=== PATIENT | male | born 1955 | race Caucasian/White ===

== ENCOUNTER 2024-04-04 00:45 | Inpatient (IN) | payer MEDICARE, OTHER ==
[~2024-04-04] VITALS: Ht 175.3 cm; Wt 90.7 kg
[~2024-04-04 00:45] MED LIST: ESCI20TA PO; FAMO-90 PO
[2024-04-04 01:00] VITALS: BP 151/66; PULSE 68; RESP 22; TEMP 97.7; O2SAT 99
[2024-04-04 01:35] LABS: BASOPHILS # (AUTO) 0.4 K/uL (0.00-0.22); BASOPHILS % (AUTO) 3.7 % (0.0-2.0); EOSINOPHILS # (AUTO) 0.2 K/uL (0-0.4); EOSINOPHILS % (AUTO) 1.7 % (0.0-4.0); HEMOGLOBIN 15.5 g/dL (12.0-18.0); LYMPHOCYTES # (AUTO) 1.3 K/uL (2.0-11.5); MEAN CORPUSCULAR HEMOGLOBIN 32 pg (27-31); MEAN CORPUSCULAR HGB CONC 35 g/dL (33-37); MEAN CORPUSCULAR VOLUME 92.6 fL (80-94); MONOCYTES # (AUTO) 0.3 K/uL (0.8-1.0); NEUTROPHILS # (AUTO) 7.3 K/uL (1.8-7.7); NEUTROPHILS % (AUTO) 77.6 % (42.2-75.2); PLATELET COUNT (AUTO) 225 K/uL (140-450); RED BLOOD CELL COUNT(AUTO) 4.87 MIL/uL (4.20-6.10); WHITE BLOOD COUNT (AUTO) 9.5 K/uL (4.8-10.8)
[2024-04-04 01:43] LABS: APPEARANCE,URINE CLEAR (CLEAR); BILIRUBIN,URINE NEGATIVE (NEGATIVE); BLOOD, URINE TRACE-I (NEGATIVE); COLOR,URINE YELLOW (YELLOW); LEUKOCYTE ESTERASE ,URINE NEGATIVE (NEGATIVE); NITRITE, URINE NEGATIVE (NEGATIVE); PROTEIN,URINE NEGATIVE (NEGATIVE); UGLUCOSE NEGATIVE (NEGATIVE); UROBILINOGEN,URINE 0.2 EU/dL (0.2 - 1)
[2024-04-04 01:49] LABS: ALBUMIN 4.3 g/dL (3.4-5.0); CALCIUM 9.9 mg/dL (8.5-10.1); TOTAL BILIRUBIN 0.7 mg/dL (0.0-1.0); TOTAL PROTEIN, SERUM 7.5 g/dL (6.4-8.2)
[2024-04-04 01:50] LABS: RBC,URINE 0-5 /HPF (0-5)
[2024-04-04 01:51] LABS: BACTERIA,URINE 10-30 (MOD) /HPF (None Seen); MUCUS,URINE 1+ /LPF (None Seen); SQUAMOUS EPITHELIAL CELL,UR 0-3 (FEW) /LPF (0-3 (FEW)); WBC,URINE 0-5 /HPF (0-5)
[2024-04-04] MEDS ORDERED: MORPHINE SULFATE 4 MG/ML SYR ONE (02:16)
[2024-04-04] MEDS: MORPHINE SULFATE 4 MG/ML SYR IVP ONE ×2 (02:24→05:00)
[2024-04-04] MEDS: ACETAMINOPHEN 100 ML IV ONE (03:34)
[2024-04-04] MEDS: NACL 0.9% 1,000 ML IV ONE ×3 (03:35→08:01)
[2024-04-04] MEDS: METOCLOPRAMIDE 10 MG/2 ML INJ VIAL IVP ONE (08:01)
[2024-04-04] MEDS: KETOROLAC 30 MG/ML VIAL IVP ONE (08:07)
[2024-04-04] MEDS ORDERED: cefTRIAXone 1,000 MG VIAL ONE (10:02)
[2024-04-04] MEDS: metroNIDAZOLE 500 MG/NS PREMIX 100 ML IV ONE (10:17)
[2024-04-04] MEDS ORDERED: ONDANSETRON 4 MG/2 ML VIAL IVP PRN (11:55)
[2024-04-04] MEDS ORDERED: MAG SULF 2000 MG/WATER PREMIX 50 ML IV PRN (11:55)
[2024-04-04] MEDS ORDERED: ZOLPIDEM 5 MG TAB PO PRN (11:55)
[2024-04-04] MEDS ORDERED: LORazepam 1 MG TAB PO PRN (11:55)
[2024-04-04] MEDS ORDERED: ATOR10TA51 PO (12:28)
[2024-04-04] MEDS ORDERED: TAMS0.4C97 PO (12:28)
[2024-04-04] MEDS ORDERED: FINA5TAB5 PO (12:28)
[2024-04-04] MEDS ORDERED: ALPR0.5T20 PO (12:28)
[2024-04-04 12:48] LABS: LACTIC ACID 1.9 mmol/L (0.4-2.0)
[2024-04-04] MEDS ORDERED: PIPERACILLIN/TAZOBACTAM 2.25 GM in DEXTROSE 5% 50 ML IV SCH (13:00)
[2024-04-04] MEDS: NACL 0.9% 1,000 ML IV SCH (13:05)
[2024-04-04] MEDS: PIPERACILLIN/TAZOBACTAM 3.375 GM in DEXTROSE 5% 50 ML IV SCH (18:17)
[2024-04-04] MEDS: KCL 20 MEQ IN 100 mL PREMIX 200 ML IV PRN (18:24)
[2024-04-04 20:00] VITALS: BP 128/59; PULSE 62; PULSE 66; RESP 18; TEMP 98.6; O2SAT 98
[2024-04-04] MEDS: ACETAMINOPHEN 325 MG TAB PO PRN (20:47)
[2024-04-05] VITALS: BP 110/53; PULSE 63; PULSE 66; RESP 20; TEMP 98.2; O2SAT 97
[2024-04-05 04:00] VITALS: BP 116/54; PULSE 59; PULSE 63; RESP 18; TEMP 98.1; O2SAT 97
[2024-04-05] MEDS ORDERED: KETOROLAC 30 MG/ML VIAL IVP ONE (06:00)
[2024-04-05] MEDS: HYDROmorphone 1 MG/ML AMP IVP ONE (06:24)
[2024-04-05 07:04] LABS: BASOPHILS % (AUTO) 0.1 % (0.0-2.0); HEMATOCRIT 41.4 % (36-52); LYMPHOCYTES # (AUTO) 0.8 K/uL (2.0-11.5); LYMPHOCYTES % (AUTO) 4.2 % (20.5-51.1); MEAN CORPUSCULAR HEMOGLOBIN 32 pg (27-31); MEAN CORPUSCULAR HGB CONC 34 g/dL (33-37); MEAN CORPUSCULAR VOLUME 93.7 fL (80-94); MONOCYTES # (AUTO) 1.1 K/uL (0.8-1.0); MONOCYTES % (AUTO) 5.7 % (1.7-9.3); NEUTROPHILS # (AUTO) 17.4 K/uL (1.8-7.7); PLATELET COUNT (AUTO) 168 K/uL (140-450); RED BLOOD CELL COUNT(AUTO) 4.42 MIL/uL (4.20-6.10); RED CELL DISTRIBUTION WIDTH 13.1 % (11.6-13.7); WHITE BLOOD COUNT (AUTO) 19.3 K/uL (4.8-10.8)
[2024-04-05 07:19] LABS: INR 1.16 (0.8-1.2); PROTHROMBIN TIME 12.1 secs (10.8-13.4)
[2024-04-05 08:00] VITALS: BP 101/52; PULSE 66; PULSE 70; RESP 18; RESP 20; TEMP 98.7; O2SAT 96; O2SAT 98
[2024-04-05] MEDS ORDERED: NACL 0.9% 1,000 ML IV SCH (08:40)
[2024-04-05] MEDS: FINASTERIDE 5 MG TAB PO SCH (08:52)
[2024-04-05] MEDS: TAMSULOSIN 0.4 MG CAP PO SCH (08:53)
[2024-04-05 10:06] LABS: ANION GAP 10.5 (8-16); CALCIUM 8.3 mg/dL (8.5-10.1); CREATININE 0.9 mg/dL (0.6-1.3); MAGNESIUM 1.8 mg/dL (1.8-2.4); PHOSPHORUS 2.4 mg/dL (2.5-4.9); POTASSIUM 3.5 mmol/L (3.5-5.1); TOTAL BILIRUBIN 1.4 mg/dL (0.0-1.0)
[2024-04-05 12:00] VITALS: BP 106/64; PULSE 70; PULSE 74; RESP 18; TEMP 98.7; O2SAT 98
[2024-04-05 16:00] VITALS: BP 113/55; PULSE 64; PULSE 74; RESP 18; TEMP 99; O2SAT 98
[2024-04-05] MEDS: ALPRAZolam 0.5 MG TAB PO SCH (17:02)
[2024-04-05 20:00] VITALS: BP 115/54; PULSE 72; PULSE 77; RESP 18; TEMP 98; O2SAT 95
[2024-04-05] MEDS: HYDROcodone/APAP 5/325 MG 1 TAB TAB PO PRN (22:50)
[2024-04-06] VITALS: BP 99/50; PULSE 75; PULSE 81; RESP 17; TEMP 98.4; O2SAT 93
[2024-04-06 04:00] VITALS: BP 110/58; PULSE 70; PULSE 79; RESP 18; TEMP 98; O2SAT 97
[2024-04-06 06:50] LABS: BASOPHILS % (AUTO) 0.1 % (0.0-2.0); HEMOGLOBIN 13.6 g/dL (12.0-18.0); LYMPHOCYTES # (AUTO) 0.8 K/uL (2.0-11.5); LYMPHOCYTES % (AUTO) 4.6 % (20.5-51.1); MEAN CORPUSCULAR HEMOGLOBIN 32 pg (27-31); MEAN CORPUSCULAR HGB CONC 34 g/dL (33-37); MEAN CORPUSCULAR VOLUME 93.7 fL (80-94); MONOCYTES # (AUTO) 0.9 K/uL (0.8-1.0); MONOCYTES % (AUTO) 5.3 % (1.7-9.3); NEUTROPHILS # (AUTO) 15.1 K/uL (1.8-7.7); PLATELET COUNT (AUTO) 142 K/uL (140-450); RED BLOOD CELL COUNT(AUTO) 4.27 MIL/uL (4.20-6.10); RED CELL DISTRIBUTION WIDTH 13.2 % (11.6-13.7); WHITE BLOOD COUNT (AUTO) 16.7 K/uL (4.8-10.8)
[2024-04-06 07:01] LABS: INR 1.16 (0.8-1.2); PROTHROMBIN TIME 12.1 secs (10.8-13.4)
[2024-04-06 07:16] LABS: ALBUMIN 2.6 g/dL (3.4-5.0); ANION GAP 8.5 (8-16); CALCIUM 8.2 mg/dL (8.5-10.1); CARBON DIOXIDE 28.7 mmol/L (21-32); CREATININE 0.8 mg/dL (0.6-1.3); MAGNESIUM 1.7 mg/dL (1.8-2.4); PHOSPHORUS 2.3 mg/dL (2.5-4.9); POTASSIUM 3.2 mmol/L (3.5-5.1); TOTAL BILIRUBIN 1.4 mg/dL (0.0-1.0); TOTAL PROTEIN, SERUM 5.7 g/dL (6.4-8.2)
[2024-04-06 08:00] VITALS: BP 129/68; PULSE 76; PULSE 78; PULSE 83; RESP 18; TEMP 98; O2SAT 94
[2024-04-06] MEDS: POTASSIUM CHLORIDE 10 MEQ TABER PO SCH (08:00)
[2024-04-06] MEDS: MAG SULF 2000 MG/WATER PREMIX 50 ML IV SCH (09:40)
[2024-04-06] MEDS: MORPHINE SULFATE 2 MG/ML SYR IVP PRN (10:21)
[2024-04-06 12:00] VITALS: BP 129/68; PULSE 79; PULSE 82; RESP 18; TEMP 99.3; O2SAT 91
[2024-04-06] MEDS: MIDAZOLAM 2 MG/2 ML VIAL ONE (13:05)
[2024-04-06] MEDS: fentaNYL citrate 0.05 MG/ML VIAL ONE (13:06)
[2024-04-06] MEDS: SUGAMMADEX SODIUM 200 MG/2 ML VIAL IV ONE (13:06)
[2024-04-06] MEDS: SUCCINYLCHOLINE CHLORIDE 200 MG/10 ML VIAL IVP ONE (13:07)
[2024-04-06] MEDS: DEXAMETHASONE 4 MG/ML VIAL ONE (13:07)
[2024-04-06] MEDS: ROCURONIUM 50 MG/5 ML VIAL IV ONE (13:07)
[2024-04-06] MEDS: ONDANSETRON 4 MG/2 ML VIAL ONE (13:07)
[2024-04-06] MEDS: PROPOFOL 200 MG/20 ML VIAL IV ONE (13:07)
[2024-04-06] MEDS: METOCLOPRAMIDE 10 MG/2 ML INJ VIAL ONE (13:07)
[2024-04-06] MEDS ORDERED: ONDANSETRON 4 MG/2 ML VIAL IVP PRN (13:15)
[2024-04-06] MEDS: LACTATED RINGERS 1,000 ML IV SCH (13:15)
[2024-04-06] MEDS ORDERED: ACETAMINOPHEN 100 ML IV SCH (13:15)
[2024-04-06] MEDS ORDERED: SEVOFLURANE 250 ML BTL INH ONE (13:31)
[2024-04-06] MEDS: BUPIVACAINE-MPF 0.25% 30 ML VIAL INJ ONE (14:29)
[2024-04-06] MEDS: HYDROmorphone 1 MG/ML AMP IVP PRN (15:40)
[2024-04-06 16:00] VITALS: BP 100/62; PULSE 62; PULSE 72; RESP 18; TEMP 98.7; O2SAT 91
[2024-04-06] MEDS: HYDROmorphone PFS 2 MG/ML SYR ONE (16:03)
[2024-04-06] MEDS: POTASSIUM CHLORIDE 40 MEQ, LIDOCAINE 1% 25 MG in NACL 0.9% 250 ML IV SCH (18:41)
[2024-04-06 20:00] VITALS: BP 111/68; PULSE 77; PULSE 78; RESP 18; TEMP 98.7; O2SAT 93; O2SAT 94
[2024-04-07] VITALS: BP 120/70; PULSE 73; PULSE 76; RESP 18; TEMP 97.4; O2SAT 94
[2024-04-07 04:00] VITALS: BP 125/68; PULSE 65; PULSE 67; RESP 18; TEMP 97.3; O2SAT 94
[2024-04-07 06:54] LABS: BASOPHILS % (AUTO) 0.2 % (0.0-2.0); HEMATOCRIT 39.1 % (36-52); HEMOGLOBIN 13.3 g/dL (12.0-18.0); LYMPHOCYTES # (AUTO) 0.3 K/uL (2.0-11.5); MEAN CORPUSCULAR HEMOGLOBIN 32 pg (27-31); MEAN CORPUSCULAR HGB CONC 34 g/dL (33-37); MEAN CORPUSCULAR VOLUME 93.1 fL (80-94); MONOCYTES # (AUTO) 0.6 K/uL (0.8-1.0); MONOCYTES % (AUTO) 4.4 % (1.7-9.3); NEUTROPHILS % (AUTO) 93.4 % (42.2-75.2); PLATELET COUNT (AUTO) 154 K/uL (140-450); WHITE BLOOD COUNT (AUTO) 13.9 K/uL (4.8-10.8)
[2024-04-07 07:11] LABS: INR 1.11 (0.8-1.2); PROTHROMBIN TIME 11.5 secs (10.8-13.4)
[2024-04-07 07:16] LABS: ALBUMIN 2.3 g/dL (3.4-5.0); ANION GAP 6.4 (8-16); CARBON DIOXIDE 29.2 mmol/L (21-32); CREATININE 0.7 mg/dL (0.6-1.3); MAGNESIUM 2.1 mg/dL (1.8-2.4); PHOSPHORUS 1.8 mg/dL (2.5-4.9); POTASSIUM 3.6 mmol/L (3.5-5.1); TOTAL BILIRUBIN 0.8 mg/dL (0.0-1.0); TOTAL PROTEIN, SERUM 5.7 g/dL (6.4-8.2)
[2024-04-07 08:00] VITALS: BP 125/70; PULSE 67; RESP 18; TEMP 96.9; O2SAT 96
[2024-04-07 12:00] VITALS: BP 121/70; PULSE 70; RESP 18; TEMP 97.9; O2SAT 96
[2024-04-07 16:00] VITALS: BP 123/72; PULSE 70; RESP 18; TEMP 98; O2SAT 97
[2024-04-07 20:00] VITALS: BP 129/64; PULSE 65; PULSE 68; RESP 18; TEMP 97.8; O2SAT 95
[2024-04-08] VITALS (9 sets, daily range): BP systolic 120–127; BP diastolic 64–68; PULSE 52–70; RESP 18; TEMP 97.4–98; O2SAT 94–98
[2024-04-08 06:33] LABS: BASOPHILS % (AUTO) 0.1 % (0.0-2.0); EOSINOPHILS % (AUTO) 0.1 % (0.0-4.0); HEMATOCRIT 37.1 % (36-52); HEMOGLOBIN 12.8 g/dL (12.0-18.0); LYMPHOCYTES # (AUTO) 0.7 K/uL (2.0-11.5); LYMPHOCYTES % (AUTO) 7.3 % (20.5-51.1); MEAN CORPUSCULAR HEMOGLOBIN 32 pg (27-31); MEAN CORPUSCULAR HGB CONC 34 g/dL (33-37); MEAN CORPUSCULAR VOLUME 92.4 fL (80-94); MONOCYTES # (AUTO) 0.5 K/uL (0.8-1.0); MONOCYTES % (AUTO) 5.9 % (1.7-9.3); NEUTROPHILS % (AUTO) 86.6 % (42.2-75.2); PLATELET COUNT (AUTO) 179 K/uL (140-450); RED BLOOD CELL COUNT(AUTO) 4.01 MIL/uL (4.20-6.10); RED CELL DISTRIBUTION WIDTH 13.1 % (11.6-13.7); WHITE BLOOD COUNT (AUTO) 9.3 K/uL (4.8-10.8)
[2024-04-08 06:35] LABS: INR 1.06 (0.8-1.2); PROTHROMBIN TIME 11.1 secs (10.8-13.4)
[2024-04-08 06:53] LABS: ALBUMIN 2.2 g/dL (3.4-5.0); ANION GAP 7.4 (8-16); CALCIUM 7.9 mg/dL (8.5-10.1); CARBON DIOXIDE 29.6 mmol/L (21-32); CREATININE 0.7 mg/dL (0.6-1.3); MAGNESIUM 2.1 mg/dL (1.8-2.4); PHOSPHORUS 1.6 mg/dL (2.5-4.9); TOTAL BILIRUBIN 0.8 mg/dL (0.0-1.0); TOTAL PROTEIN, SERUM 5.6 g/dL (6.4-8.2)
[2024-04-09] VITALS: BP 111/60; PULSE 65; RESP 18; TEMP 98.3; O2SAT 97
[2024-04-09 01:54] VITALS: O2SAT 98
[2024-04-09 07:22] LABS: BASOPHILS % (AUTO) 0.3 % (0.0-2.0); EOSINOPHILS # (AUTO) 0.1 K/uL (0-0.4); EOSINOPHILS % (AUTO) 1.5 % (0.0-4.0); HEMOGLOBIN 13.6 g/dL (12.0-18.0); LYMPHOCYTES # (AUTO) 0.9 K/uL (2.0-11.5); LYMPHOCYTES % (AUTO) 13.4 % (20.5-51.1); MEAN CORPUSCULAR HEMOGLOBIN 32 pg (27-31); MEAN CORPUSCULAR HGB CONC 34 g/dL (33-37); MEAN CORPUSCULAR VOLUME 92.8 fL (80-94); MONOCYTES # (AUTO) 0.7 K/uL (0.8-1.0); MONOCYTES % (AUTO) 10.4 % (1.7-9.3); NEUTROPHILS # (AUTO) 4.8 K/uL (1.8-7.7); NEUTROPHILS % (AUTO) 74.4 % (42.2-75.2); PLATELET COUNT (AUTO) 208 K/uL (140-450); RED BLOOD CELL COUNT(AUTO) 4.31 MIL/uL (4.20-6.10); WHITE BLOOD COUNT (AUTO) 6.5 K/uL (4.8-10.8)
[2024-04-09 07:25] VITALS: PULSE 70; RESP 14; O2SAT 94
[2024-04-09 07:50] LABS: ALBUMIN 2.3 g/dL (3.4-5.0); ANION GAP 10.1 (8-16); CALCIUM 7.8 mg/dL (8.5-10.1); CREATININE 0.7 mg/dL (0.6-1.3); MAGNESIUM 1.9 mg/dL (1.8-2.4); PHOSPHORUS 2.3 mg/dL (2.5-4.9); POTASSIUM 3.1 mmol/L (3.5-5.1); TOTAL BILIRUBIN 0.9 mg/dL (0.0-1.0); TOTAL PROTEIN, SERUM 5.7 g/dL (6.4-8.2)
[2024-04-09 08:00] VITALS: BP 126/71; PULSE 71; RESP 20; TEMP 98.3; O2SAT 71; O2SAT 96
[2024-04-09 08:32] LABS: INR 1.01 (0.8-1.2); PROTHROMBIN TIME 10.6 secs (10.8-13.4)
[2024-04-09] MEDS ORDERED: CIPR500T4 PO (09:54)
[2024-04-09] MEDS ORDERED: METR-520 PO (09:56)
[2024-04-09] MEDS ORDERED: ACET500T99 PO (10:08)
[2024-04-09 12:00] VITALS: BP 126/71; PULSE 71; RESP 20; TEMP 98.3; O2SAT 96
[2024-04-09] MEDS: POTASSIUM CHLORIDE 10 MEQ TABER PO ONE (12:52)
[2024-04-09 13:21] VITALS: BP 126/71; PULSE 71; RESP 20; TEMP 98.3
== END 2024-04-09 17:30 | disposition home or self-care (01) | DRG 418 ==
LOC: MED 00:45 → MTU 11:55
PROVIDERS: ADMIT Student in an Organized Health Care Education/Training Program; ATTEND Student in an Organized Health Care Education/Training Program
PROC: 0FT44ZZ Resection of Gallbladder, Percutaneous Endoscopic Approach (ICD-10-PCS; principal; 2024-04-06 10:20)
DX: K80.00 Calculus of gallbladder with acute cholecystitis without obstruction (principal); E87.1 Hypo-osmolality and hyponatremia; E87.20 Acidosis, unspecified; N13.30 Unspecified hydronephrosis; N40.0 Benign prostatic hyperplasia without lower urinary tract symptoms; E87.6 Hypokalemia; Z79.899 Other long term (current) drug therapy
CPT/HCPCS: 36415; 71045; 76705; 80053; 81001; 82803; 83605; 83690; 83735; 84100; 85025; 85610; 87040; 87081; 88304; 93005; 96365; 96368; 96375; 96376; 97116; 97163-GP; 99285; J0330; J0696; J1100; J1170; J1885; J2001; J2250; J2270; J2405; J2543; J2704; J2765; J3010; J3475; J3480; J3490; J7030; J7060; Q0092; Q9967